=== PATIENT | female | born 1985 | race Caucasian/White ===

== ENCOUNTER 2022-10-10 00:44 | Inpatient (IN) ==
[2022-10-10] MEDS ORDERED: LACTATED RINGER'S 1,000 ML IV PRN (01:19)
[2022-10-10] MEDS ORDERED: LIDOCAINE 1% LOCAL 20 ML VIAL INFIL PRN (01:19)
[2022-10-10] MEDS ORDERED: OXYTOCIN 30 UNITS/500 ML BAG IV PRN ×2 (01:19→06:24)
[2022-10-10 02:19] LABS: Hematocrit (blood only) 34.5 % (37.0-47.0); Hemoglobin 12.1 g/dl (12.0-16.0); Mean Corpuscular Hemoglobin 31.1 pg (25.0-34.0); Mean Corpuscular Hgb Conc 35.1 g/dL (32.0-36.0); Mean Corpuscular Volume 88.7 fL (80.0-100.0); Platelet Count 100 K/uL (130-400); RDW Coefficient of Variation 13.2 % (11.5-14.5); Red Blood Count 3.89 M/uL (4.20-5.40); White Blood Count 14.13 K/ul (4.8-10.8)
--- NOTE | 2022-10-10 06:14 | Delivery Summary ---
Vaginal Delivery Summary Date of Service October 10, 2022 Vaginal Delivery Summary Spontaneous vaginal delivery the patient arrived in active labor was admitted first baby wish to go unmedicated and delivery and progressed to fully dilated at that stage she delivered a baby in occiput anterior position once the head was delivered and the fluid was clear there was no nuchal cord gentle traction on the baby no excessive force use easy delivery live vigorous male cord clamped delayed cord clamping was actually performed but once the pulse and the cord stopped the cord was cut and then cord blood obtained placenta removed with gentle traction intramuscular Pitocin was given as the patient did not want an IV There was a small first-degree tear which is repaired after injecting with lidocaine and then repairing with 3-0 Vicryl sponge and instrument counts correct
[2022-10-10] MEDS ORDERED: HYDROCORTISONE ACETATE 25 MG SUPP PR PRN (06:24)
[2022-10-10] MEDS ORDERED: bisacodyL 10 MG SUPP PR PRN (06:24)
[2022-10-10] MEDS ORDERED: BENZOCAINE 20% AER SPR 82.5 GM CAN EXT PRN (06:24)
[2022-10-10] MEDS ORDERED: ACETAMINOPHEN 325 MG TAB PO PRN (06:24)
[2022-10-10] MEDS ORDERED: IBUPROFEN 600 MG TAB PO PRN (06:24)
[2022-10-10] MEDS ORDERED: DIPHTHERIA/TETANUS/PERTUSSIS Vaccine (Tdap, Age 7+yrs) 0.5mL SYR/VL IM ONE (06:24)
[2022-10-10] MEDS ORDERED: OXYTOCIN 10 UNITS/ML 10ML VIAL IM ONE (06:39)
[2022-10-10] MEDS: DOCUSATE SODIUM 100 MG CAP PO SCH ×2 (09:18→20:19)
[2022-10-10] MEDS: PRENATAL VITAMIN 1 TAB PO SCH (09:19)
[2022-10-10] MEDS ORDERED: OXYTOCIN 10 UNITS/ML VIAL ONE (23:17)
[2022-10-11 07:04] LABS: Hemoglobin 11.2 g/dl (12.0-16.0); Mean Corpuscular Hemoglobin 31.5 pg (25.0-34.0); Mean Corpuscular Hgb Conc 33.9 g/dL (32.0-36.0); Mean Platelet Volume 13.9 fL (9.4-12.4); Platelet Count 104 K/uL (130-400); RDW Coefficient of Variation 13.5 % (11.5-14.5); RDW Standard Deviation 45.5 fL (36.4-46.3); Red Blood Count 3.55 M/uL (4.20-5.40); White Blood Count 14.86 K/ul (4.8-10.8)
--- NOTE | 2022-10-11 08:23 | Obstetrical Progress Note ---
Date of Service October 11, 2022 Assessment & Plan (1) Supervision of elderly primigravida: PPD#1 doing well. Routine care. Anticipate DC home tomorrow. Subjective Ambulation: ambulating normally Voiding: no voiding problems Diet Tolerance:: regular diet Lochia:: Moderate Review of Systems All systems reviewed & are unremarkable except as noted in HPI & below Physical Exam Constitutional WD/WN, vitals as above no acute distress Respiratory normal respiratory effort Cardiovascular Rate/Rhythm: regular rate and regular rhythm Gastrointestinal (Abdomen) Inspection/Auscultation: abdomen normal to inspection; abdomen not distended Percussion/Palpation: abdomen soft Genitourinary OB Exam Abdomen: + fundal height Fundus: + firm; not tender Results & Data Vital Signs (Past 12 Hours) Vital Signs Temp Pulse Resp BP 10/11/22 05:00 36.7 C 75 18 113/70 10/11/22 00:05 36.6 C 84 18 117/69
[2022-10-11] MEDS: PRENATAL VITAMIN 1 TAB PO SCH (08:59)
[2022-10-11] MEDS: DOCUSATE SODIUM 100 MG CAP PO SCH ×2 (08:59→19:46)
[2022-10-11] MEDS ORDERED: bisacodyL 5 MG TABEC PO SCH (20:00)
[2022-10-12 07:15] LABS: Hematocrit (blood only) 34.5 % (37.0-47.0); Hemoglobin 11.4 g/dl (12.0-16.0)
--- NOTE | 2022-10-12 08:36 | Obstetrical Progress Note ---
Date of Service October 12, 2022 Assessment & Plan (1) exam: Plan stable, ready for dc home. instructions reviewed. f/u 6wk pp. breast/rhpos/ri. Day #:: 2 Subjective Ambulation: ambulating normally Voiding: no voiding problems Diet Tolerance:: regular diet Lochia:: Small Feeding Type:: breast feeding denies concerns Physical Exam Constitutional WD/WN, vitals as above Respiratory normal respiratory effort, lungs clear to auscultation Cardiovascular Rate/Rhythm: regular rate and regular rhythm Gastrointestinal (Abdomen) Inspection/Auscultation: abdomen normal to inspection Percussion/Palpation: abdomen soft Fundus firm 2cm down Musculoskeletal nt calves no edema Neurologic grossly normal Psychiatric A+Ox3, euthymic affect Results & Data Vital Signs (Past 12 Hours) Vital Signs Temp Pulse Resp BP O2 Del Method 10/11/22 23:35 98.1 F 77 16 125/79 Room Air
[2022-10-12] MEDS: PRENATAL VITAMIN 1 TAB PO SCH (09:37)
[2022-10-12] MEDS: DOCUSATE SODIUM 100 MG CAP PO SCH (09:37)
--- NOTE | 2022-10-13 06:42 | Coding Query ---
CODING QUERY To promote full compliance with coding requirements relating to patient care, provider participation is requested in all cases of almond paste molder uncertainty. Please assist us with the question(s) below: Coding Question(s): Please state the weeks of gestation at time of admission. Physician's Response(s): 39 week vaginal delivery Thank you Barbara Real Principal Diagnosis: "that condition established after study, to be chiefly responsible for occasioning the admission of the patient to the hospital for care." Co-Existing Principal Diagnosis: "when two or more diagnoses equally meet the criteria for principal diagnosis as determined by the circumstances of admission, diagnostic work up, and/or therapy provided, and the Alphabetic Index, Tabular List, or another coding guideline does not provide sequencing direction, any one of the diagnoses may be sequenced first." "When the physician has documented what appears to be a current diagnosis in the body of the record, but has not included the diagnosis in the final diagnostic statement, the physician should be asked whether the diagnosis should be added." (Source [facility]oding [facility] 2 QTR90. p3-4) JANA
== END 2022-10-12 12:00 | disposition home or self-care (01) | DRG 807 ==
LOC: OPB 00:44 → 4S1 00:51 → 4E2 09:00